=== PATIENT | female | born 1975 | race African-American/Black ===

== ENCOUNTER 2019-04-01 17:58 | Observation (INO) ==
[2019-04-01] MEDS ORDERED: MORPHINE 4 MG/1 ML VIAL IV STA (18:48)
[2019-04-01] MEDS ORDERED: SODIUM CHLORIDE 0.9% 1,000 ML IV STA (18:48)
[2019-04-01] MEDS ORDERED: ONDANSETRON 4 MG/2 ML VIAL IV STA (18:48)
[2019-04-01] MEDS ORDERED: PANTOPRAZOLE 40 MG VIAL IV STA (18:49)
[2019-04-01 18:59] LABS: Basophils % 0.2 % (0.0-0.8); Eosinophils % 0.3 % (0.00-10.9); Hematocrit 44.5 VOL% (35.7-47.0); Hemoglobin 15.1 GM/DL (12.0-16.0); Immature Granulocytes % 0.3 %; Immature Granulocytes Absolute 0.04 #; Lymphocytes # 1.4 10*3/uL (1.4-4.0); Lymphocytes % 10.6 % (21.3-54.2); Mean Corpuscular HGB Conc 33.9 GM/DL (32-36); Mean Corpuscular Volume 94.1 FL (87-102); Mean Platelet Volume 11.2 FL (9.6-12.0); Monocytes % 5.3 % (1.7-12.7); Neutrophils % 83.3 % (38.7-73.9); Platelet Count 248 T/CUMM (130-400); Red Blood Count 4.73 MC/CUMM (3.8-5.5); Red Cell Distribution Width 12.9 % (9.3-17.3); White Blood Count 13.1 T/CUMM (4-12)
[2019-04-01 19:16] LABS: Albumin 4.5 G/DL (3.4-5.0); Bilirubin,Total 0.4 MG/DL (0.2-1.0); Calcium 9.9 MG/DL (8.5-10.1); Osmolality,Calculated 280.1 MOS/KG (273-304); Total Protein 8.5 G/DL (6.4-8.3)
[2019-04-01] MEDS ORDERED: ONDANSETRON 4 MG/2 ML VIAL IV PRN (20:40)
[2019-04-01 20:58] LABS: Apearance,Urine CLEAR (Clear); Bilirubin,Urine Negative (Negative); Blood, Urine Large mg/dL (Negative); Glucose,Urine (UA) Negative (Negative); Ketones,Urine 20 mg/dL (Negative); Mucus,Urine Many /LPF (Occasional); Nitrite,Urine Negative (Negative); Protein,Urine Negative; RBC,Urine 3 /HPF (0-4); Squamous Epithelial Cell,Urine Occasional /HPF (0-10); Urine Color Yellow (Yellow); Urine Specific Gravity 1.021 (1.001-1.035); Urine Urobilinogen < 2.0 EU/DL (0.2-1.0); WBC,Urine 4 /HPF (0-6)
[2019-04-01] MEDS ORDERED: DEXTROSE 5% LACTATED RINGERS 1,000 ML IV SCH (21:00)
[2019-04-01] MEDS: HYDROmorphone 2 MG/1 ML VIAL IV PRN (22:54)
[2019-04-01] MEDS: PIPERACILLIN/TAZOBACTAM 3,375 MG in SODIUM CHLORIDE 0.9% 100 ML IV SCH (22:54)
[2019-04-02] MEDS: PIPERACILLIN/TAZOBACTAM 3,375 MG in SODIUM CHLORIDE 0.9% 100 ML IV SCH (06:38)
[2019-04-02] MEDS ORDERED: BUPIVACAINE 0.25% /EPI 10 ML VIAL ONE (06:53)
[2019-04-02] MEDS ORDERED: LIDOCAINE 1% 20 ML VIAL ONE (06:53)
[2019-04-02] MEDS ORDERED: TISSUE ADHESIVE 1 EACH APPLICATOR TOP ONE (06:53)
[2019-04-02] MEDS ORDERED: cefOXitin 2,000 MG in SYRINGE 1 EACH IV ONE (07:00)
[2019-04-02] MEDS ORDERED: propofoL 200 MG/20 ML VIAL IV ONE (08:29)
[2019-04-02] MEDS ORDERED: SEVOFLURANE 1 UNIT/15 MINUTE INH ONE (08:30)
[2019-04-02] MEDS ORDERED: DEXAMETHASONE 4 MG/1 ML VIAL ONE (08:30)
[2019-04-02] MEDS ORDERED: LIDOCAINE 2% 5 ML VIAL ONE (08:30)
[2019-04-02] MEDS ORDERED: KETOROLAC 30 MG/1 ML VIAL ONE (08:30)
[2019-04-02] MEDS ORDERED: fentaNYL 100 MCG/2 ML VIAL ONE (08:30)
[2019-04-02] MEDS ORDERED: ONDANSETRON 4 MG/2 ML VIAL ONE (08:30)
[2019-04-02] MEDS ORDERED: MIDAZOLAM 2 MG/2 ML VIAL ONE (08:30)
[2019-04-02] MEDS ORDERED: ROCURONIUM 100 MG/10 ML VIAL IV ONE (08:31)
[2019-04-02] MEDS ORDERED: LACTATED RINGERS 1,000 ML IV ONE (08:31)
[2019-04-02] MEDS ORDERED: NEOSTIGMINE 10 MG/10 ML VIAL ONE (08:31)
[2019-04-02] MEDS ORDERED: GLYCOPYRROLATE 0.4 MG/2 ML VIAL ONE (08:31)
[2019-04-02] MEDS ORDERED: ACETAMINOPHEN 1,000 MG/100 ML VIAL IV ONE (08:31)
[2019-04-02] MEDS ORDERED: PANTOPRAZOLE 40 MG VIAL IV SCH (09:00)
[2019-04-02] MEDS ORDERED: SERTRALINE 50 MG TABLET PO SCH (09:30)
[2019-04-02] MEDS: HYDROmorphone 2 MG/1 ML VIAL IV PRN (11:20)
[2019-04-02 13:07] VITALS: BP 103/52
== END 2019-04-02 15:23 | disposition home or self-care (01) ==
LOC: N.EDINP 17:58 → N.ED 17:58 → N.3E 21:02
PROVIDERS: ADMIT Surgery; ATTEND Surgery